=== PATIENT | male | born 1985 | race Caucasian/White ===

== ENCOUNTER → 2017-06-16 | Outpatient (CLI) | payer MEDICAID ==
--- NOTE | 2017-06-16 10:48 | PDOTPY ---
History - Physical Therapy Evaluation Documentation and Scheduling Accounts Match: Yes Date of Evaluation (PT): 06/16/17 - Language Patient's Preferred Healthcare Language: Patient Not Present - Medical/Surgical Significant Medical Diagnoses/Conditions: CP, multiple surgeries as result of CP - Current Condition Referring Medical Diagnosis (PT): wheelchair evaluation Reason for PT Visit Related To: Other (CP) Date of Onset: 83 History of Current Condition: Davidson is as 32y/o w/c bound male. He received his current w/c and seating system in January of 2015. For some time, his caregivers have been having difficulty positioning him properly in the seat. Pt was referred to have recommendations made to improve custom seating system. - Function Prior to Onset Functional Level Prior to Onset of Current Condition: I with w/c mob in PWC. relies on caregivers for all transfers and ADLs - Living Environment Living Arrangements: With Other (caregiver) Living Environment-Outside Home: Level Living Environment-Inside Home: Level - Learning Preferences Learns Best: Doing/Participation Tests/Measures - Pain Location of Pain: none - Observation Observation/Posture: pelvic obliquity- R hip low, L thoracic c-curve, R shoulder elevation, thoracic kyphosis and forward head. leg length discrepency. LLE IRed and R tibial torsion into ER. w/c cushion is pushed too far backward limiting LE support. when pushed forward- unable to turn R w/c leg rest - Functional Mobility Gait Observations: Other (unable to ambulate) Transfer: Maximum Assist (Pt=25-49%), Total Assist (Pt<25%) Bed Mobility: Total Assist (Pt<25%) Wheelchair Mobility: Modified Independent (Device) Neurologic - Muscle Tone Neck Muscle Tone: Hypertonicity Trunk Muscle Tone: Hypertonicity Left Upper Extremity Muscle Tone: Hypertonicity Left Lower Extremity Muscle Tone: Hypertonicity Right Lower Extremity Muscle Tone: Hypertonicity - Cognition/Communication Follows Multi-Step Directions: Impaired Expresses Basic Needs/Ideas: Impaired Cognitive Impairment: New Learning, Problem Solving Treatment - Treatment Rendered Treatment Provided (PT): Education-Patient Assessment - Assessment Rehab Diagnoses/Problem List (PT): Knowledge Deficit Regarding Rehab Diagnosis, Motor Control Impairment, Postural Dysfunction PT Initial Evaluation Assessment: Pt seen this date for seating evaluation. It was determinted that pt should return to [employer] [facility] to have modification made to his custom seating system. Therefore pt is to be discharged at this time. - Additional Documentation See the Following Interventions for Additional Documentation: Outpatient PT Treatment Note (Charges) Plan of Care - Functional PT Goals Patient/Family Member Participated in Goal Setting: Yes Goal 1 (PT): pt will return to [facility] to have modifications made on custom molded seating orthosis - Plan Frequency of Outpatient PT: Discharge Anticipated Duration for This Episode of Care (PT): Discharge - Medicare/Medicaid Medicaid Insurance (Primary): Yes Medicare Insurance (Primary or Secondary): No - Provider Referring Provider (First and Last Name): John Hensley MD
== END ==
PROVIDERS: ATTEND Internal Medicine
DX: G80.9 Cerebral palsy, unspecified (principal); Z99.3 Dependence on wheelchair
CPT/HCPCS: 97161-GP

== ENCOUNTER → 2018-04-14 | Outpatient (CLI) | payer OTHER, MEDICAID ==
--- NOTE | 2018-04-14 10:46 | NOWCEV ---
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 His past medical history is significant for a dorsal rhizotomy surgery to decrease spasticity, and derotational osteotomies. He relies on a PWC and custom molded seating orthosis (ANESTHESIOLOGY CRNA) for all mobility. Over the past year, Oscar has gained about 30lbs, and his ANESTHESIOLOGY CRNA which is 3y/o no longer accommodates his size. Oscar was referred to this clinic by his doctor to have recommendations made for modifications to his seating system. Functional Mobility - Oscar cannot walk, even with an AD due to spasticity throughout his legs, trunk and arms. He cannot self propel a MWC due to spasticity and decreased motor control in this arms. He can drive a PWC safety with his R hand. He performs stand pivot transfers with a grab bar and manual assistance from his caregiver. Oscar requires max A for sup to sit transitions and assistance for rolling L and R. Oscar is not able to perform independent pressure relief in his chair and relies fully on his caregiver for all repositioning. Oscar's caregiver reports that he has to manually pull Oscar back into his chair about 20times /day as the ANESTHESIOLOGY CRNA is too small and pushing him forward in his seat. Head/Trunk control - Oscar is able to maintain unsupported sitting with CG, but he demonstrate increased postural sway and decreased trunk control, and falls into a significant kyphosis which becomes more severe with fatigue over a 2-3 minute span of time. He maintains his head in a forward position with all unsupported sitting. Oscar's dynamic sitting balance is poor due to his spasticity and decreased postural control. Motor involvement - Oscar can move his arms better than his legs. His LE movement is severely impacted by spasticity causing Oscar to be unable to volitionally move his LEs. Passively, he can only achieve 90degrees of hip flexion, but this causes increased spasm in the contralateral limb. Oscar's arms are also impacted by his spasticity. MMT B shoulder scaption is 3-/5. He cannot preform a wheelchair push up for pressure relief and is dependent on his caregiver to reposition in his chair. Oscar has better use of his R arm than his L, but has poor motor control through both. Posture - In sitting, Oscar has significant postural abnormalities including a pelvic obliquity (R hip low), a left thoracic convexity, significant thoracic kyphosis, rounded shoulders and forward head. He also has a leg length discrepancy, where the left leg is 20" and the right is 18". Velázquez L LE is externally rotated from the hip and the right has a tibial torsion into external rotation. Sitting in his chair there is a large space between his chair back and his spine as the orthosis is now too narrow and it pushes Oscar forward in his chair. He leans over the R lateral of this orthosis which is causing issues with pressure posterior and inferior to his R axilla. Skin Sensation - Oscar reports that his sensation is intact throughout his body. He does have discoloration of the skin posterior and inferior to his R axilla from continuously leaning R over the edge of his ANESTHESIOLOGY CRNA where the padding has worn away. He intermittently has episodes of incontinence placing him at higher risk for skin breakdown given his inability to independently perform pressure relief. Endurance - Oscar is up in his chair for >8hrs/day. ADLs - Oscar is dependent on his signal timer caregiver to complete all self care and ADLs. He completes most of his ADLs from a wheelchair level, and requires his wheelchair to access all MRADLs in the home. Cognitive/Social - Oscar lives with a fully time caregiver in a fully accessible home. He uses special transit/via for public transportation. Current wheelchair - Oscar's current PWC and ANESTHESIOLOGY CRNA are 3y/o. Given Oscar 30lb weight gain over the past year, his ANESTHESIOLOGY CRNA can no longer accommodate his body. Given that it is too narrow, Oscar is continuously being pushed forward in his seat which requires his caregiver to reposition/pull him back into his seat about 20times/day leading to safety concerns. When pulled back, the seated is too narrow which creates a large gap so that his spine does not come in contact with his seat. Oscar is continuously leaning R over the R lateral support. This has caused the padding to be worn away leaving a sharp edge on the lateral. This is leading to pressure issues inferior to Oscar's R axilla. MEDICAL and FUNCTIONAL NEED/OBJECTIVES To replace Oscar's custom molded seating orthosis which is 3y/o and no longer accommodates his body due to weight gain. PRIMARY FUNCTIONAL LIMITATION (G Code) * Mobility CURRENT STATUS OF PRIMARY FUNCTIONAL LIMITATION (Severity Modifier) * At least 60 percent but less than 80 percent impaired, limited or restricted ( CL) GOAL STATUS OF PRIMARY FUNCTIONAL LIMITATION (Severity Modifier) * At least 60 percent but less than 80 percent impaired, limited or restricted ( CL) DISCHARGE STATUS OF PRIMARY FUNCTIONAL LIMITATION (Severity Modifier) * At least 60 percent but less than 80 percent impaired, limited or restricted ( CL) EQUIPMENT RECOMMENDATIONS AND JUSTIFICATIONS The following recommendations are believed to be the most cost effective way to meet the patients medical and functional needs. * Custom Molded Seating orthosis: Needed to replace Oscar current ANESTHESIOLOGY CRNA which is 3y/o and is no longer accommodating his body due to a 30lb weight gains since the orthosis was fabricated. The width of the current ANESTHESIOLOGY CRNA is now too narrow causing him to be pushed forward in his chair. This has led to increased pressure and skin changes inferior to his R axilla. The poor fit and deterioration of the padding on Oscar's current ANESTHESIOLOGY CRNA is leading to poor pressure distribution which places Oscar at risk for skin breakdown as he is unable to independently pressure relieve or reposition. Additionally, the poor fit of the orthosis no longer provides Oscar with the postural support required to maintain sitting upright in his chair, limiting ADLs, and causing his caregiver to have to manually reposition him upwards of 20times/day. A new custom molded ANESTHESIOLOGY CRNA will provide Oscar with appropriate postural support and control to more easily perform ADLs from his chair, and will decrease risk of skin breakdown. Off the shelf products are not likely to be successful due to Oscar's significant postural asymmetries and abnormal muscle tone/spasticity. * Equipment to grow current chair 2": Needed to increase the width of his current chair to accommodate a larger ANESTHESIOLOGY CRNA. These recommendations are based on the likelihood that Oscar will require the use of a wheelchair and ANESTHESIOLOGY CRNA for mobility and postural control for perform all MRADLs for the rest of his life. If you have any questions or concerns regarding the stated recommendations, please feel free to contact the therapist at . Thank you for your cooperation in obtaining the necessary equipment for this patient. LIAM Beckwith
== END ==
DX: Z99.3 Dependence on wheelchair (principal); G80.9 Cerebral palsy, unspecified
CPT/HCPCS: 97162; G8978; G8979; G8980

== ENCOUNTER → 2018-07-07 | Outpatient (CLI) | payer OTHER, MEDICAID ==
--- NOTE | 2018-07-07 11:01 | PDOTPY ---
History - Physical Therapy Evaluation Documentation and Scheduling Accounts Match: Yes Date of Evaluation (PT): 07/07/18 - Language Patient's Preferred Healthcare Language: Patient Not Present - Medical/Surgical Significant Medical Diagnoses/Conditions: CP, dorsal rhizotomy, derotational osteotomy - Current Condition Referring Medical Diagnosis (PT): spastic quadriplegic cerebral palsy Reason for PT Visit Related To: Other (CP) Date of Onset: 83 History of Current Condition: Pt is a 33y/o male with spastic quadriplegic CP who has been wheelchair bound throughout his life. He was referred to clinic to trial and have recommendations made for a standing frame. - Function Prior to Onset Functional Level Prior to Onset of Current Condition: w/c bound. max A for all transfers. has parking ramp attendant caregivers - Work/School/Leisure Work Status: Disability - Learning Preferences Learns Best: Doing/Participation, Listening/Discussion, Reading/Handouts, Visual /Demonstration Tests/Measures - Observation Observation/Posture: pelvic obliquity with R hip low, L thoracic convexity, thoracic kyphosis, forward head. leg length discrepency (L leg long), LLE is interanally rotated from hip with a tibial torsion into ER, leans to the R - Functional Mobility Gait Observations: Other (non ambulatory, not able to stand, even with AD) Transfer: Total Assist (Pt<25%), Mechanical Lift Wheelchair Mobility: Modified Independent (Device) - Balance Standing Balance: unable to stand, in standing frame able to maintain upright posture with S - Cardio/Pulmonary Cardio/Pulmonary: BP in sittin/90, standing in frame: 157/95 Neurologic - Movement Patterns/Motor Control Movement Patterns/Motor Control: Impaired (limited by severe spasticity) - Coordination Coordination: Impaired - Motor Planning Motor Planning: Impaired - Muscle Tone Muscle Tone: Impaired Neck Muscle Tone: Hypertonicity Trunk Muscle Tone: Hypertonicity Left Upper Extremity Muscle Tone: Hypertonicity Right Upper Extremity Muscle Tone: Hypertonicity Left Lower Extremity Muscle Tone: Hypertonicity Right Lower Extremity Muscle Tone: Hypertonicity - Cognition/Communication Follows Basic Directions: Impaired Follows Multi-Step Directions: Impaired Expresses Basic Needs/Ideas: Impaired Cognitive Impairment: Initiation, New Learning, Problem Solving, Sequencing/ Organization Treatment - Treatment Rendered Treatment Provided (PT): Education-Caregiver (re: standing frame), Education- Patient Assessment - Assessment Rehab Diagnoses/Problem List (PT): Balance Impairment, Coordination Impairment, Fall Risk, Gait Dysfunction (non ambulatory), Joint Stiffness, Knowledge Deficit Regarding Rehab Diagnosis, Motor Control Impairment, Postural Dysfunction, Range of Motion Impairment, Strength Impairment PT Initial Evaluation Assessment: Pt seen in w/c clinic for trial of standing frame with goal to order custom fitted device for home use with goals for tone management, contracture mgt, improvement of respiratory and cardiovascular function. Pt tolerate trials well, and demonstrate good posture in frame. Did have some elevated BP, but caregiver reports that this is normal for pt. At end of session, pt decide that he did not want to pursue device for home use, despite encouragement from his caregiver and edu re: benefits of standing. Therefore, device will not be ordered at this time. - Additional Documentation See the Following Interventions for Additional Documentation: PT G Code, Outpatient PT Treatment Note (Charges) - 1 Functional Limitation-Mobility Mobility Current Status: CL (at least 60%, <80%) Mobility Goal Status: CL (at least 60%, <80%) Mobility Discharge Status: CL (at least 60%, <80%) Plan of Care - Functional PT Goals Patient/Family Member Participated in Goal Setting: Yes (d/c at time of eval) - Plan Frequency of Outpatient PT: Discharge Anticipated Duration for This Episode of Care (PT): Discharge - Medicare/Medicaid Medicaid Insurance (Primary): No Medicare Insurance (Primary or Secondary): Yes - Plan of Care Certification-Medicare Only Physical Therapy Plan of Care Certification: Physician/NPP signature below serves as approval of PT Plan of Care (POC). Certification is for duration of POC or 90 days from PT eval, whichever is less. Medicare requests that the Physician/NPP certify the POC w/i 30 days of initial PT treatment. - Attention Physician/NPP Physician/NPP Signature and Date: - Provider Referring Provider (First and Last Name): Sharona Beltran NP
== END ==
DX: G82.50 Quadriplegia, unspecified (principal); G80.9 Cerebral palsy, unspecified; Z99.3 Dependence on wheelchair
CPT/HCPCS: 97162; G8978; G8979; G8980